=== PATIENT | male | born 1955 | race Caucasian/White ===

== ENCOUNTER 2016-08-05 11:14 | Emergency (ER) | payer OTHER, MEDICARE ==
[~2016-08-05] VITALS: Ht 175.3 cm; Wt 104.3 kg
[~2016-08-05 11:14] MED LIST: ASPIRIN CHILDRE81 MG PO; ATORVASTATIN CA10 MG PO; FLEXERIL10 MG PO; HYDROCODONE/APA1 TA1 PO; METFORMIN HYD1000 MG PO; PRINIVIL 5MG5 MG PO; PROPRANOLOL HYD20 MG PO; QUETIAPINE FUM100 MG PO; RISPERIDONE1 MG PO; RISPERIDONE4 MG PO
--- NOTE | 2016-08-05 12:39 | RADIOLOGY REPORT ---
EXAMINATION: XR CHEST CLINICAL INFORMATION: Shortness of breath COMPARISON: 08/01/2012 TECHNIQUE: 2 views of the chest were obtained. FINDINGS: Lungs are well expanded and clear. No pulmonary consolidation or pleural effusion. Cardiac silhouette is normal in size. The mediastinal and hilar contours are normal. There is skeletal hyperostosis with evidence of flowing anterior and lateral ligament ossification of the thoracic spine. IMPRESSION: No acute cardiopulmonary findings.
--- NOTE | 2016-08-05 13:33 | ED DYSPNEA/ASTHMA COMPLAINT ---
History of Present Illness General Chief Complaint: Dyspnea (COPD, CHF, Other) Stated Complaint: SOB; 98% AT [employer] Source: patient, old records Exam Limitations: no limitations Vital Signs & Intake/Output Vital Signs & Intake/Output Vital Signs Date Time Temp Pulse Resp B/P Pulse O2 O2 Flow FiO2 Ox Delivery Rate 08/05 1429 99.0 100 18 144/88 96 Room Air 08/05 1312 97 08/05 1143 97.7 94 20 137/84 98 Room Air Allergies Coded Allergies: MDX - Ampicillin (UNKNOWN 08/19/14) Reconcile Medications Aspirin (Children's Aspirin) 81 MG TAB.CHEW 1 TAB PO DAILY HEART HEALTH ( Reported) Atorvastatin Calcium (Lipitor) 10 MG TABLET 1 TAB PO DAILY CHOLESTEROL ( Reported) Lisinopril (Prinivil) 5 MG TABLET 1 TAB PO DAILY HEART (Reported) METFORMIN HCL (Metformin Hydrochloride) 1,000 MG TABLET 1 TAB PO BID DIABETES (Reported) Quetiapine Fumarate 100 MG TAB 1 TAB PO AT BEDTIME SLEEP (Reported) Risperidone 1 MG TABLET 1 TAB PO QPM MENTAL HEALTH (Reported) Risperidone 4 MG TABLET 1 TAB PO BID MENTAL HEALTH (Reported) Triage Note: PT TO ED C/O SOB AFTER SHOVELING THIS AM. STATES SAME HAPPENED A FEW YEARS AGO AND NOTHING WAS FOUND. RA SATS 98%, NO SOB OR DIFF BREATHING NOTED. DENIES C/P. Triage Nurses Notes Reviewed? yes HPI: Patient is a 61-year-old male with past history of diabetes and schizophrenia presents complaining of dyspnea. Patient reports he was shoveling snow for approximately 20 minutes at 9 AM this morning when he had the onset of dyspnea. Patient felt fatigued while shoveling, then dyspnea occurred when he came inside from shoveling. The symptoms are currently mild, more moderate this morning. Patient reports no change since onset with walking. Patient felt a heart racing sensation while he was in the waiting room in the emergency department. Patient denies chest pain, lower extremity pain, lower extremity swelling, cough, fevers , chills. Patient had a similar episode 4 years ago with shortness of breath when shoveling snow. Patient was brought in for observation at that time. Patient reports he had a stress test at that time and sees Dr. Almendarez for cardiology. (SARAVANAN GOMES,JARRED) Past History Travel History Traveled to [place] past 21 day No Medical History Any Pertinent Medical History? 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 No (JARRED DIAZ) Review of Systems Review of Systems Constitutional: Reports: malaise (while shoveling snow this AM). Denies: chills, fever. EENTM: Reports: no symptoms. Respiratory: Reports: short of breath. Denies: cough. Cardiovascular: Denies: chest pain, peripheral edema. GI: Denies: abdominal pain, nausea, vomiting. Genitourinary: Reports: no symptoms. Musculoskeletal: Reports: no symptoms. Skin: Reports: no symptoms. Neurological/Psychological: Reports: no symptoms. Hematologic/Endocrine: Reports: no symptoms. Immunologic/Allergic: Reports: no symptoms. (JARRED DIAZ) Physical Exam Physical Exam General Appearance: well developed/nourished, alert, awake Head: atraumatic, normal appearance Eyes: Bilateral: normal appearance, PERRL, EOMI. Ears, Nose, Throat: normal pharynx, normal ENT inspection, hearing grossly normal Neck: normal inspection, supple, full range of motion Respiratory: normal breath sounds, chest non-tender, no respiratory distress, lungs clear Cardiovascular: regular rate/rhythm, no appreciable murmur Peripheral Pulses: 2+ radial (R) Gastrointestinal: soft, non-tender Extremities: normal inspection, normal capillary refill, normal range of motion, no edema, no calf tenderness Neurologic/Psych: awake, alert, oriented x 3, flat affect Skin: intact, normal color, warm/dry Lymphatic: no anterior cervical judy Core Measures ACS in differential dx? Yes ASA ordered for poss ACS? No-ACS ruled out Severe Sepsis Present: No Septic Shock Present: No (JARRED DIAZ) Progress Differential Diagnosis: asthma, AMI, bronchitis, CHF, COPD, pulmonary embolism, pneumonia, unstable angina Plan of Care: Orders Procedure Date/time Status Consistent Carbohydrate 2 08/05 L Active TROPONIN LEVEL 08/05 1326 Complete COMPREHENSIVE METABOLIC PANEL 08/05 1326 Complete CBC WITHOUT DIFFERENTIAL 08/05 1326 Complete EKG 08/05 1326 Active Laboratory Tests 08/05/16 1345: Anion Gap 11, Estimated GFR > 60, BUN/Creatinine Ratio 15.6, Glucose 167 H, Calcium 9.2, Total Bilirubin 0.6, AST 38, ALT 63, Alkaline Phosphatase 70, Troponin I 0.03, Total Protein 6.5, Albumin 4.1, Globulin 2.4, Albumin/Globulin Ratio 1.7, CBC w Diff NO MAN DIFF REQ, RBC 4.58 L, MCV 90.5, MCH 32.0 H, RDW 13.7, MPV 7.2 L, Gran % 69.2, Lymphocytes % 22.4, Monocytes % 7.1, Eosinophils % 1.0, Basophils % 0.3, Absolute Granulocytes 5.7, Absolute Lymphocytes 1.8, Absolute Monocytes 0.6, Absolute Eosinophils 0.1, Absolute Basophils 0, PUBS MCHC 35.[address] Wood 08/05/2016 2:47:40 PM: Discussed with Dr. Almendarez: Can discharge patient and have him call the office to be seen this week for further evaluation. (JARRED DIAZ) Diagnostic Imaging: Viewed by Me: Radiology Read. Discussed w/RAD: Radiology Read. CXR Impression: PATIENT: LEW HENRIQUEZ PRESENT AGE: 61 PATIENT ACCOUNT NO: [id number] : 53 LOCATION: [facility] ORDERING PHYSICIAN: ADA WOOD MD SERVICE DATE: 08/05/16 EXAM TYPE: RAD - XRY-CHEST XRAY , PA AND LATERAL EXAMINATION: XR CHEST CLINICAL INFORMATION: Shortness of breath COMPARISON: 08/01/2012 TECHNIQUE: 2 views of the chest were obtained. FINDINGS: Lungs are well expanded and clear. No pulmonary consolidation or pleural effusion. Cardiac silhouette is normal in size. The mediastinal and hilar contours are normal. There is skeletal hyperostosis with evidence of flowing anterior and lateral ligament ossification of the thoracic spine. IMPRESSION: No acute cardiopulmonary findings. DICTATED BY: BARBARA SANDERS MD DATE/TIME DICTATED:08/05/161233 PHARMACY SERVICES REPRESENTATIVE:SHERITA DATE/TIME TRANSCRIBED:1233 CONFIDENTIAL, DO NOT COPY WITHOUT APPROPRIATE AUTHORIZATION. < Electronically signed in Other Vendor System> SIGNED BY: BARBARA SANDERS MD 08/05/16 1239 Initial ED EKG: normal axis, normal intervals, normal p-waves, normal QRS complex, normal sinus rhythm, no ST T wave changes Prior EKG: unchanged (JARRED DIAZ) Departure Departure Time of Disposition: 1449 Disposition: HOME OR SELF CARE Condition: Stable Clinical Impression Primary Impression: Dyspnea Qualifiers: Dyspnea type: unspecified Qualified Code: R06.00 - Dyspnea, unspecified Referrals: ZOHRA GOTTLIEB APRN (PCP/Family) CLEMENTE ALMENDAREZ MD Additional Instructions: Follow up with Dr. Almendarez this week for further evaluation. Call this afternoon for appointment. Return to the emergency department if you develop chest pain, shortness of breath worsens, or any worsening of symptoms. Departure Forms: Customer Survey General Discharge Information (JARRED DIAZ) PA/HEALTH NURSE Co-Sign Statement Statement: ED Attending supervision documentation- [] I saw and evaluated the patient. I have also reviewed all the pertinent lab results and diagnostic results. I agree with the findings and the plan of care as documented in the PA's/HEALTH NURSE's documentation. [X] I have reviewed the ED Record and agree with the PA's/HEALTH NURSE's documentation. [] Additions or exceptions (if any) to the PAs/HEALTH NURSE's note and plan are summarized below: [] (BESS BRYSON,ADA) Critical Care Note Critical Care Note Critical Care Time: non-applicable (JARRED DIAZ)
[2016-08-05 14:05] LABS: ABSOLUTE BASOPHIL COUNT 0 /CUMM (0.0-0.2); ABSOLUTE EOSINOPHIL COUNT 0.1 /CUMM (0.0-0.7); ABSOLUTE GRANULOCYTE CT 5.7 /CUMM (1.4-6.5); ABSOLUTE LYMPH COUNT 1.8 /CUMM (1.2-3.4); ABSOLUTE MONOCYTE COUNT 0.6 /CUMM (0.10-0.60); BASOPHIL % 0.3 % (0.0-2.0); GRANULOCYTE % 69.2 % (42.2-75.2); HEMATOCRIT 41.5 % (42-52); MEAN CORPUSCULAR HGB CONC 35.3 G/DL (33.0-37.0); MEAN CORPUSCULAR VOLUME 90.5 FL (80.0-94.0); MEAN PLATELET VOLUME 7.2 FL (7.4-10.4); PLATELET COUNT 169 /CUMM (130-400); RBC DISTRIBUTION WIDTH 13.7 % (11.5-14.5); RED BLOOD CELL CT 4.58 /CUMM (4.70-6.10); WHITE BLOOD CELL COUNT 8.2 /CUMM (4.8-10.8)
[2016-08-05 14:29] VITALS: BP 144/88
== END 2016-08-05 14:53 ==
LOC: ERH 11:14
PROVIDERS: Physician Assistant
DX: R06.00 Dyspnea, unspecified (principal); E11.9 Type 2 diabetes mellitus without complications; Z79.84 Long term (current) use of oral hypoglycemic drugs
CPT/HCPCS: 93005; 93010

== ENCOUNTER 2017-06-26 12:34 | Inpatient (IN) | payer OTHER, MEDICARE ==
[~2017-06-26] VITALS: Ht 175.3 cm; Wt 101.3 kg
[~2017-06-26 12:34] MED LIST changes: -ASPIRIN CHILDRE81 MG PO; -ATORVASTATIN CA10 MG PO; +CHILDREN'S ASPI81 M1 PO; +LIPITOR10 M1 PO; +METFORMIN HCL500 M2 PO; -METFORMIN HYD1000 MG PO; +QUETIAPINE FUM100 M1 PO; -QUETIAPINE FUM100 MG PO; +RISPERDAL2 M1 PO; +RISPERDAL4 M1 PO; -RISPERIDONE1 MG PO; -RISPERIDONE4 MG PO
--- NOTE | 2017-06-26 12:39 | ED DYSPNEA/ASTHMA COMPLAINT ---
See Addendum History of Present Illness General Chief Complaint: Dyspnea (COPD, CHF, Other) Stated Complaint: SOB Source: patient, old records, EMS Exam Limitations: no limitations Vital Signs & Intake/Output Vital Signs & Intake/Output Vital Signs Date Time Temp Pulse Resp B/P B/P Pulse O2 O2 Flow FiO2 Mean Ox Delivery Rate 06/26 1840 98.3 74 17 138/73 97 Room Air 06/26 1625 98.0 84 18 138/70 95 Room Air 06/26 1410 87 18 118/68 95 Room Air 06/26 1239 Room Air Room Air 06/26 1238 98.3 90 20 146/66 98 Room Air Room Air Allergies Coded Allergies: ampicillin (UNKNOWN 06/26/17) Reconcile Medications Aspirin (Children's Aspirin) 81 MG TAB.CHEW 1 TAB PO DAILY HEART HEALTH ( Reported) Atorvastatin Calcium (Lipitor) 10 MG TABLET 1 TAB PO DAILY CHOLESTEROL ( Reported) Glimepiride 4 MG TABLET 1 TAB PO DAILY DIABETES (Reported) Metformin HCl 500 MG TABLET 4 TAB PO DAILY DIABETES (Reported) Quetiapine Fumarate 100 MG TABLET 1 TAB PO QPM SLEEP (Reported) Risperidone (Risperdal) 4 MG TABLET 1 TAB PO BID MENTAL HEALTH (Reported) Risperidone (Risperdal) 2 MG TABLET 1 TAB PO QPM MENTAL HEALTH (Reported) Triage Note: PT BIBA FROM HOME FOR C/C OF 1 EPISODE OF NAUSEA THAT STARTED AT 0930 THIS MORNING FOLLOWED BY AN EPISODE OF SOB. DENIES CHEST PAIN. NO ACUTE DISTRESS NOTED ON ARRIVAL. Triage Nurses Notes Reviewed? yes HPI: Approximately the clock this morning the patient began to feel nauseous. Patient then began to feel shortness of breath. At noon the nausea has gotten better however was still slightly present but the shortness of breath continued so he attempted to walk to the police station. Wall en route there he noticed a cut was passing certified him down. EMS was called and the patient was brought in for evaluation. His fingerstick was 225. Patient denies any chest pain or palpitations. Patient denies any orthopnea. Patient denies any dyspnea on exertion. (Beronica BRYSON,Charles Milton) Past History Travel History Traveled to [place] past 21 day No Medical History Any Pertinent Medical History? 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 No (Beronica BRYSON,Charles Milton) Review of Systems Review of Systems Constitutional: Reports: no symptoms. EENTM: Reports: no symptoms. Respiratory: Reports: see HPI, short of breath. Cardiovascular: Reports: no symptoms. GI: Reports: no symptoms. Genitourinary: Reports: no symptoms. Musculoskeletal: Reports: no symptoms. Skin: Reports: no symptoms. Neurological/Psychological: Reports: no symptoms. Hematologic/Endocrine: Reports: no symptoms. Immunologic/Allergic: Reports: no symptoms. All Other Systems: Reviewed and Negative (Beronica BRYSON,Charles Milton) Physical Exam Physical Exam General Appearance: well developed/nourished, alert, awake Head: atraumatic, normal appearance Eyes: Bilateral: PERRL, EOMI. Ears, Nose, Throat: normal pharynx, normal ENT inspection Neck: normal inspection, supple, full range of motion, NO JVD Respiratory: normal breath sounds, chest non-tender, no respiratory distress, lungs clear Cardiovascular: regular rate/rhythm, normal peripheral pulses Gastrointestinal: normal bowel sounds, soft, non-tender, no organomegaly Extremities: normal inspection, normal capillary refill, normal range of motion, no edema Neurologic/Psych: no motor/sensory deficits, awake, alert, oriented x 3, normal gait, normal mood/affect Skin: intact, normal color, warm/dry Lymphatic: no anterior cervical judy Core Measures ACS in differential dx? No CVA/TIA Diagnosis No Sepsis Present: No Sepsis Focused Exam Completed? No (Beronica BRYSON,Charles Milton) Progress Differential Diagnosis: AMI, bronchitis, CHF, COPD, pneumonia, pneumothorax Plan of Care: Orders Procedure Date/time Status Heart Healthy Diet 06/26 D Active Add-on Test (ER Only) 06/26 1729 Active URINE DRUGS OF ABUSE 06/26 1729 Complete URINALYSIS 06/26 1729 Complete ED CRISIS PSYCH CONSULT 06/26 1644 Active ETHANOL 06/26 1531 Complete TROPONIN LEVEL 06/26 1517 Complete EKG 06/26 1517 Active Telemetry/Older Worker Specialist 06/26 1236 Active TROPONIN LEVEL 06/26 123 Complete COMPREHENSIVE METABOLIC PANEL 06/26 1235 Complete CBC WITHOUT DIFFERENTIAL 06/26 1235 Complete EKG 06/26 123 Active Current Medications Sig/Doris Start time Last Medication Dose Stop Time Status Admin Aspirin 81 MG DAILY 06/27 999 UNVr (Aspirin) Glimepiride 1 MG DAILY 06/27 999 UNVr (Amaryl) Metformin HCl 2,000 MG DAILY 06/27 999 UNVr (Glucophage) Quetiapine Fumarate 100 MG QPM 06/26 2199 UNVr (Seroquel) Risperidone 2 MG QPM 06/26 2199 UNVr (risperiDONE) Risperidone 4 MG .[10A,8PM] 06/26 2014 UNVr (Risperidone) Laboratory Tests 06/26/17 1735: Urine Opiates Screen < 100.00, Methadone Screen < 40, Barbiturate Screen < 60, Ur Phencyclidine Scrn < 6.00, Amphetamines Screen < 100, U Benzodiazepines Scrn < 85, Urine Cocaine Screen < 50, Urine Cannabis Screen < 5.00, Urine Color YEL, Urine Clarity CLEAR, Urine pH 6.0, Ur Specific [place] 1.025, Urine Protein NEG, Urine Ketones TRACE H, Urine Nitrite NEG, Urine Bilirubin NEG, Urine Urobilinogen 0.2, Ur Leukocyte Esterase NEG, Ur Microscopic SEDIMENT EXAMINED, Urine RBC RARE, Urine WBC RARE, Ur Epithelial Cells RARE, Urine Bacteria RARE H , Urine Mucus RARE, Urine Hemoglobin SMALL H, Urine Glucose 500 H 06/26/17 1531: Troponin I < 0.01, Serum Alcohol < 10.0 06/26/17 1243: Anion Gap 16, Estimated GFR > 60, BUN/Creatinine Ratio 15.6, Glucose 178 H, Calcium 9.2, Total Bilirubin 0.5, AST 36, ALT 66, Alkaline Phosphatase 65, Troponin I < 0.01, Total Protein 6.5, Albumin 4.1, Globulin 2.4, Albumin/ Globulin Ratio 1.7, CBC w Diff NO MAN DIFF REQ, RBC 4.63 L, MCV 91.0, MCH 31.4 H, RDW 14.3, MPV 7.4, Gran % 68.5, Lymphocytes % 22.6, Monocytes % 7.4, Eosinophils % 1.1, Basophils % 0.4, Absolute Granulocytes 4.9, Absolute Lymphocytes 1.6, Absolute Monocytes 0.5, Absolute Eosinophils 0.1, Absolute Basophils 0, PUBS MCHC 34.5 Diagnostic Imaging: Viewed by Me: Radiology Read. Discussed w/RAD: Radiology Read. CXR Impression: PATIENT: LEW HENRIQUEZ PRESENT AGE: 62 PATIENT ACCOUNT NO: [id number] : 53 LOCATION: [facility] ORDERING PHYSICIAN: Charles Loco MD SERVICE DATE: 06/26/17 EXAM TYPE: RAD - XRY- PORTABLE CHEST XRAY EXAMINATION: XR PORTABLE CHEST CLINICAL INFORMATION: Chest pain COMPARISON: 08/05/2016 TECHNIQUE: Portable frontal view of the chest was obtained. FINDINGS: The lungs are well expanded. There is no focal consolidation , edema, or effusion. No pneumothorax. The cardiomediastinal silhouette is within normal limits. No acute osseous abnormality. IMPRESSION: No acute pulmonary findings. DICTATED BY: Ashwin Brown MD DATE/TIME DICTATED:1311 HAND SURGEON:SHERITA DATE/TIME TRANSCRIBED:06/26/171311 CONFIDENTIAL, DO NOT COPY WITHOUT APPROPRIATE AUTHORIZATION. <Electronically signed in Other Vendor System> SIGNED BY: Stephanie BRYSON,Ashwin 06/26/171314 Pre-Hospital EKG: NSR, no ST T wave changes Initial ED EKG: NSR, no ST T wave changes Prior EKG: unchanged Repeat EKG: unchanged Rhythm Strip: normal sinus rhythm Hand-Off Endorsed To: Cory Ignacio MD Endorsed Time: 1904 Pending: consult (CRISIS) Comments: Patient states that he believes his symptoms are due to the fact that the devil is upset that he has been praying a lot more than normal. Patient does state that god does talk back to him. 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 The patient is currently resting comfortably. (Sandee BRYSON,Cory Hopson) Departure Departure Disposition: STILL A PATIENT Condition: Stable Clinical Impression Primary Impression: Dyspnea Qualifiers: Dyspnea type: unspecified Qualified Code: R06.00 - Dyspnea, unspecified Referrals: Erica Vee APRN (PCP/Family) Departure Forms: Customer Survey General Discharge Information (Charles Loco MD) Critical Care Note Critical Care Note Critical Care Time: non-applicable (Beronica BRYSON,Charles Milton)
[2017-06-26 12:49] LABS: ABSOLUTE BASOPHIL COUNT 0 /CUMM (0.0-0.2); ABSOLUTE EOSINOPHIL COUNT 0.1 /CUMM (0.0-0.7); ABSOLUTE GRANULOCYTE CT 4.9 /CUMM (1.4-6.5); ABSOLUTE LYMPH COUNT 1.6 /CUMM (1.2-3.4); ABSOLUTE MONOCYTE COUNT 0.5 /CUMM (0.10-0.60); BASOPHIL % 0.4 % (0.0-2.0); EOSINOPHIL % 1.1 % (0-5); GRANULOCYTE % 68.5 % (42.2-75.2); HEMATOCRIT 42.1 % (42-52); MEAN CORPUSCULAR HGB 31.4 PG (27.0-31.0); MEAN CORPUSCULAR HGB CONC 34.5 G/DL (33.0-37.0); MEAN PLATELET VOLUME 7.4 FL (7.4-10.4); PLATELET COUNT 189 /CUMM (130-400); RBC DISTRIBUTION WIDTH 14.3 % (11.5-14.5); RED BLOOD CELL CT 4.63 /CUMM (4.70-6.10); WHITE BLOOD CELL COUNT 7.1 /CUMM (4.8-10.8)
--- NOTE | 2017-06-26 13:15 | RADIOLOGY REPORT ---
EXAMINATION: XR PORTABLE CHEST CLINICAL INFORMATION: Chest pain COMPARISON: 08/05/2016 TECHNIQUE: Portable frontal view of the chest was obtained. FINDINGS: The lungs are well expanded. There is no focal consolidation, edema, or effusion. No pneumothorax. The cardiomediastinal silhouette is within normal limits. No acute osseous abnormality. IMPRESSION: No acute pulmonary findings.
[2017-06-26] MEDS ORDERED: GLIMEPIRIDE4 M1 PO (14:14)
--- NOTE | 2017-06-26 19:15 | ED PSYCH CRISIS CONSULTATION ---
See Addendum Crisis Consult Basic Assessment Date of Consult: 06/26/17 Responsible Person/Accompanied By: self Insurance Authorization: Insurance #1: Insurance name: MEDICARE A Phone number: Policy number: [id number] Group number: Authorization number: ED Provider: Patient's ED Provider: Beronica BRYSON,Charles Milton Primary Care Physician: Patient's PCP: Erica Vee APRN PCP's Current Psychiatrist: Elvia Arce APRN Chief Complaint: Dyspnea (COPD, CHF, Other) Patient's Quote: shortness of breath Present Illness: Pt is 62 yo single male with hx of schizoaffective d/o bipolar type with acute exacerbation and alcohol abuse. Pt's UTOX and BAL are negative. He notes he did drink 2 bottles of wine over [place]. Pt said he came in for complaint of shortness of breath and nausea that started this morning. Pt attempted to walk to the police station saw a copy coordinator and EMS was called to bring him in. He said he has hx of auditory hallucinations , voices that can be threatening and have been lately. Pt said he believes the devil is causing his symptoms currently and god is speaking to him. Per pt ," I have divine guidance by the [employer] and MOBITR[employer] spirit." He stated he prays from 5am- 8am and again after lunch. Per pt he has not shower in a couple days. He lives with a roommate and feels safe at home. He denies SI/HI and VH at this time. He is a pt of Care currently for medication management with Elvia Fitzgerald APRN and seen every 3 months. Pt reports meds are metformin, seroquel , risperdal and a couple other medical meds for diarrhea. 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 First hospitalization in 1978- [facility], [facility] and [facility] 2010. He has hx of GH OPS. Pt reported past hx of substance abuse as a teenager - marijuana, LSD, alcohol and speed. No hx suicide attempts. Pt notes passive SI " a long time ago." This medical technical writer left message with Care for collaterl info ie. pt's baseline functioning. Care is now closed. Per collateral with his brother Bert: He saw a 2-3 weeks ago and no concerning behaviors were reported. Pt is always clean when he visits and takes care of himself. Per Bert his brother used to hear voices but then got " big into amish and it stopped." Case consulted with Dr. Palmer and recommends h/o for observation and further collateral to obtained from [facility] for pt's baseline assessment and follow up appointment. Patient's Address: [address] [place] [address] Other Phone Number: Who Do You Live With? Other (see notes) Family/Informants Interviewed: Bert- brother [phone] Allergies - Coded Allergies: ampicillin (UNKNOWN 06/26/17) Current Medications - Scheduled Medications Aspirin (Children's Aspirin) 81 MG TAB.CHEW 1 TAB PO DAILY HEART HEALTH ( Reported) Entered as Reported by Taurus New on 07/08/141116 Last Taken: At an unknown date and time Atorvastatin Calcium (Lipitor) 10 MG TABLET 1 TAB PO DAILY CHOLESTEROL ( Reported) Entered as Reported by Taurus New on 07/08/14 111 Last Taken: At an unknown date and time Glimepiride 4 MG TABLET 1 TAB PO DAILY DIABETES #90 (Reported) Entered as Reported by Taurus New on 06/26/17 1414 Metformin HCl 500 MG TABLET 4 TAB PO DAILY DIABETES (Reported) Entered as Reported by Taurus New on 07/08/14 111 Quetiapine Fumarate 100 MG TABLET 1 TAB PO QPM SLEEP (Reported) Entered as Reported by Taurus New on 07/08/14 111 Last Taken: At an unknown date and time Risperidone (Risperdal) 4 MG TABLET 1 TAB PO BID MENTAL HEALTH (Reported) Entered as Reported by Taurus New on 07/08/14 111 Last Taken: At an unknown date and time Risperidone (Risperdal) 2 MG TABLET 1 TAB PO QPM MENTAL HEALTH (Reported) Entered as Reported by Taurus New on 08/19/14 0839 Laboratory Results: Laboratory Tests 06/26/17 1735: Urine Opiates Screen < 100.00, Methadone Screen < 40, Barbiturate Screen < 60, Ur Phencyclidine Scrn < 6.00, Amphetamines Screen < 100, U Benzodiazepines Scrn < 85, Urine Cocaine Screen < 50, Urine Cannabis Screen < 5.00, Urine Color YEL, Urine Clarity CLEAR, Urine pH 6.0, Ur Specific [place] 1.025, Urine Protein NEG, Urine Ketones TRACE H, Urine Nitrite NEG, Urine Bilirubin NEG, Urine Urobilinogen 0.2, Ur Leukocyte Esterase NEG, Ur Microscopic SEDIMENT EXAMINED, Urine RBC RARE, Urine WBC RARE, Ur Epithelial Cells RARE, Urine Bacteria RARE H , Urine Mucus RARE, Urine Hemoglobin SMALL H, Urine Glucose 500 H 06/26/17 1531: Troponin I < 0.01, Serum Alcohol < 10.0 06/26/17 1243: Anion Gap 16, Estimated GFR > 60, BUN/Creatinine Ratio 15.6, Glucose 178 H, Calcium 9.2, Total Bilirubin 0.5, AST 36, ALT 66, Alkaline Phosphatase 65, Troponin I < 0.01, Total Protein 6.5, Albumin 4.1, Globulin 2.4, Albumin/ Globulin Ratio 1.7, CBC w Diff NO MAN DIFF REQ, RBC 4.63 L, MCV 91.0, MCH 31.4 H, RDW 14.3, MPV 7.4, Gran % 68.5, Lymphocytes % 22.6, Monocytes % 7.4, Eosinophils % 1.1, Basophils % 0.4, Absolute Granulocytes 4.9, Absolute Lymphocytes 1.6, Absolute Monocytes 0.5, Absolute Eosinophils 0.1, Absolute Basophils 0, PUBS MCHC 34.5 Past History Past Medical History Neurological: NONE EENT: NONE Cardiovascular: hypertension, hyperlipidemia Respiratory: bronchitis, obstructive sleep apnea Gastrointestinal: NONE Hepatic: NONE Renal: NONE Musculoskeletal: NONE Psychiatric: schizophrenia Endocrine: diabetes Blood Disorders: NONE Cancer(s): NONE SMOOTH PLATER/Reproductive: NONE Past Surgical History Surgical History: CARPAL TUNNEL, CYST Psychosocial History Strengths/Capabilities: pt utilizes the amish for support Physical Limitations (Interventions): none Psychiatric Treatment History Psych Treatment Psychiatric Treatment Yes Inpatient Treatment Yes Outpatient Treatment Yes Location of Treatment [facility], [facility], [facility] Reason for Treatment schizoaffective d/o Dates of Treatment since 1978 Response to Treatment fair Diagnosis by History: schizoaffective d/o bipolar type Substance Use/Abuse History Drug Use/Abuse Substances Used/Abused Yes Substance Used/Abused Alcohol First Use teenager Last Used [place] How much used/taken 2 bottles of wine How often unknown For how long unknown Route of use oral Substance Abuse Treatment Substance Abuse Treatment Past Substance Abuse [place] No Inpatient Treatment No Outpatient Treatment No Current Mental Status Mental Status Orientation: Person, Place, Situation Affect: Anxious Speech: WNL Neuro-vegetative: Anhedonia Appearance Appearance- Dress/Hygiene: Pt is dressed [facility] gown , hygiene is fair Behaviors Thought Process: Irrational Thought Content: Auditory Hallucinations, Pentecostal Memory: WNL Insight: Fair SI/HI Risk Assessment Past Suicidal Ideation/Attempts Yes Current Suicidal Ideation/Att No Past Homicidal Ideation/Att: No Current Homicidal Ideation/Attempts No Degree of Intent: None Gravely Disabled: Inability, Poor Impulse Control Risk Factors: chronic/serious med cond., high anxiety/distress, SA/MH hospitalized, substance abuse, isolate/no social support, male, limited support Lethality Ratin (mild) PTSD Checklist PTSD Done? pt unable to participate ED Management Sitter: Yes Restraints: No DSM5/PS Stressors/Medical Prob Diagnosis' (DSM 5, Stressors, Medical): F25.9 schizoaffective disorder, bipolar type F10.20 alcohol use d/o moderate medical: type 2 diabetes psychosocial: lack of primary supports, chronic mentall illness Current GAF: 35 Departure Disposition Psych Medical Clearance Date: 06/26/17 Medically Cleared at: 1830 Time Started: 1829 Time Ended: 1924 Psychiatrist Consulted: Gabriela Palmer MD Date Disposition Established: 06/26/17 Time Disposition Established: 1924 Plan for Disposition - Modality: H/O Rationale for Disposition: Pt reports the devil is causing his symptoms right now, that god is talking to him, and has divine guidance by everett olvera. He denies SI/HI and VH and feel safe. Pt's only concern was his shortness of breath. Case consulted with Dr. Palmer and recommends pt be H/O for further assessment in the morning and collateral information to be obtained from Care . Referrals Erica Vee APRN (PCP/Family)
--- NOTE | 2017-06-27 12:05 | IP CRISIS DIAG ASSESS PSYCH ---
See Addendum Diagnostic Assessment Basic Assessment Insurance Authorization: Insurance #1: Insurance name: MEDICARE A Phone number: Policy number: [id number] Group number: Authorization number: Primary Care Physician: Patient's PCP: Erica Vee APRN PCP's Patient's Quote: shortness of breath Present Illness: Sw met with the patient for the AM reassessment. The patient reports that he is doing better then yesterday. He states that yesterday, he had shortness of breath and felt that it was the devil, who was giving him shortness of breath. He states that he is no longer feeling the shortness of breath. He states that he is Schizophrenic and has been for many years, with subsequent hospitalizations. He is a current patient at [facility] and sees therapist Laura Wen and VANCE Fitzgerald. He states that he always hears voices and that they are constantly at a low level. He feels that they are at a low level today. He states that he can always hear the devil, however he does not usually bother him, like he did yesterday. He denies and visual hallucinations at this time. He denies any suicidal or homicidal ideations. He states that he is Religion and attends evangelical on Sundays and prays the Rosary daily. He states that he is still getting divine guidance, from the [facility]. He does not think that he needs to be hospitalized and would like to shower, shave and go home. He did state that if Dr. Ag would like him to come into the hospital that he would be willing to sign in. MYRIAM spoke with Isabel from [facility] and will await a call back, with collateral. The following was taken from the consultation completed on 06/26/2017 by INDIRA Villanueva "Pt is 62 yo single male with hx of schizoaffective d/o bipolar type with acute exacerbation and alcohol abuse. Pt's UTOX and BAL are negative. He notes he did drink 2 bottles of wine over [place]. Pt said he came in for complaint of shortness of breath and nausea that started this morning. Pt attempted to walk to the police station saw a scleroscope tester and EMS was called to bring him in. He said he has hx of auditory hallucinations , voices that can be threatening and have been lately. Pt said he believes the devil is causing his symptoms currently and god is speaking to him. Per pt ," I have divine guidance by the [place] and holy spirit." He stated he prays from 5am- 8am and again after lunch. Per pt he has not shower in a couple days. He lives with a roommate and feels safe at home. He denies SI/HI and VH at this time. He is a pt of [facility] currently for medication management with Elvia Fitzgerald APRN and seen every 3 months. Pt reports meds are metformin, seroquel , risperdal and a couple other medical meds for diarrhea. 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 First hospitalization in 1978- [facility], [facility] and [facility] 2010. He has hx of OPS. Pt reported past hx of substance abuse as a teenager - marijuana, LSD, alcohol and speed. No hx suicide attempts. Pt notes passive SI " a long time ago."" Patient's Address: [address] [place] [address] Other Phone Number: Who Do You Live With? Other (see notes) (Roommate) Feel Safe Where You Live? Yes If No, Please Elaborate: N/A Marital Status: single Do You Have Children? No Primary Language? Bolivian Family/Informants Interviewed: Bert- brother [phone] [facility]- Isabel- [phone] Allergies - Coded Allergies: ampicillin (UNKNOWN 06/26/17) Current Medications - Scheduled Medications Aspirin (Children's Aspirin) 81 MG TAB.CHEW 1 TAB PO DAILY HEART HEALTH ( Reported) Entered as Reported by Taurus New on 07/08/14 1117 Last Taken: At an unknown date and time Atorvastatin Calcium (Lipitor) 10 MG TABLET 1 TAB PO DAILY CHOLESTEROL ( Reported) Entered as Reported by Taurus New on 07/08/14 111 Last Taken: At an unknown date and time Glimepiride 4 MG TABLET 1 TAB PO DAILY DIABETES #90 (Reported) Entered as Reported by Taurus New on 06/26/17 1414 Metformin HCl 500 MG TABLET 4 TAB PO DAILY DIABETES (Reported) Entered as Reported by Taurus New on 07/08/14 1115 Quetiapine Fumarate 100 MG TABLET 1 TAB PO QPM SLEEP (Reported) Entered as Reported by Taurus New on 07/08/14 111 Last Taken: At an unknown date and time Risperidone (Risperdal) 4 MG TABLET 1 TAB PO BID MENTAL HEALTH (Reported) Entered as Reported by Taurus New on 07/08/14 111 Last Taken: At an unknown date and time Risperidone (Risperdal) 2 MG TABLET 1 TAB PO QPM MENTAL HEALTH (Reported) Entered as Reported by Taurus New on 08/19/14 0839 Consequences of Psych Med Use: The patient appears to have some involuntary motor movements. Per Care he does have a history of involntary motor movements in his legs and at times with his mouth. Comment: N/A Lab Results: Laboratory Tests 06/26/17 1735: Urine Opiates Screen < 100.00, Methadone Screen < 40, Barbiturate Screen < 60, Ur Phencyclidine Scrn < 6.00, Amphetamines Screen < 100, U Benzodiazepines Scrn < 85, Urine Cocaine Screen < 50, Urine Cannabis Screen < 5.00, Urine Color YEL, Urine Clarity CLEAR, Urine pH 6.0, Ur Specific [place] 1.025, Urine Protein NEG, Urine Ketones TRACE H, Urine Nitrite NEG, Urine Bilirubin NEG, Urine Urobilinogen 0.2, Ur Leukocyte Esterase NEG, Ur Microscopic SEDIMENT EXAMINED, Urine RBC RARE, Urine WBC RARE, Ur Epithelial Cells RARE, Urine Bacteria RARE H , Urine Mucus RARE, Urine Hemoglobin SMALL H, Urine Glucose 500 H 06/26/17 1531: Troponin I < 0.01, Serum Alcohol < 10.0 06/26/17 1243: Anion Gap 16, Estimated GFR > 60, BUN/Creatinine Ratio 15.6, Glucose 178 H, Calcium 9.2, Total Bilirubin 0.5, AST 36, ALT 66, Alkaline Phosphatase 65, Troponin I < 0.01, Total Protein 6.5, Albumin 4.1, Globulin 2.4, Albumin/ Globulin Ratio 1.7, CBC w Diff NO MAN DIFF REQ, RBC 4.63 L, MCV 91.0, MCH 31.4 H, RDW 14.3, MPV 7.4, Gran % 68.5, Lymphocytes % 22.6, Monocytes % 7.4, Eosinophils % 1.1, Basophils % 0.4, Absolute Granulocytes 4.9, Absolute Lymphocytes 1.6, Absolute Monocytes 0.5, Absolute Eosinophils 0.1, Absolute Basophils 0, PUBS MCHC 34.5 Toxicology Screen Completed? Yes Results: negative Symptoms of Use: N/A Past History Past Medical History Medical History: None/Denies, Cholesterol, Diabetes, Hypertension, SCHIZOAFFECTIVE DISORDER Past Surgical History Surgical History CARPAL TUNNEL Abuse/Trauma History Trauma History/Current Trauma: Unknown Abuse/Trauma Treatment: N/A Legal History Current Legal Status: none (Pt. denies) Have you ever been arrested? 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 Physical Limitations (Interventions): None noted Psychiatric Treatment History Psych Treatment Psychiatric Treatment Yes Inpatient Treatment Yes Outpatient Treatment Yes Location of Treatment [facility], [facility] Reason for Treatment schizoaffective d/o Dates of Treatment since 1978 Response to Treatment fair Diagnosis by History: Schizoaffective d/o bipolar type Risk Factors: chronic/serious med cond., high anxiety/distress, SA/MH hospitalized, substance abuse, isolate/no social support, male, limited support Substance Use/Abuse History Drug Use/Abuse minimum 12mo Hx Substances Used/Abused Yes Substance Used/Abused Alcohol First Use teenager Last Used [place] How much used/taken 2 bottles of wine How often unknown For how long unknown Route of use oral Substance Abuse Treatment Substance Abuse Treatment Past Substance Abuse [place] No Inpatient Treatment No Outpatient Treatment No Location of Treatment N/A Reason for Treatment N/A Dates of Treatment N/A Response to Treatment N/A Comments: N/A Sexual History Sexual Concerns: None noted Education History Highest Level of Education: high school/GED, "[employer]" Preferred Learning Style: Unknown Current Mental Status Mental Status Orientation: Person, Place, Situation Affect: Anxious Speech: WNL Neuro-vegetative: Anhedonia Appearance Appearance- Dress/Hygiene: Pt is dressed in blue hospital gown, neat clean and well kempt. Behaviors Thought Process: Irrational Thought Content: Auditory Hallucinations, Buddhism Memory: WNL Insight: Fair SI/HI Risk Assessment - Minimum 6mo History- Past Suicidal Ideation/Attempts Yes Current Suicidal Ideation/Att No Past Homicidal Ideation/Att: No Current Homicidal Ideation/Attempts No Degree of Intent: None Gravely Disabled: Inability, Poor Impulse Control Risk Factors: chronic/serious med cond., high anxiety/distress, SA/MH hospitalized, substance abuse, isolate/no social support, male, limited support Lethality Ratin (mild) Needs/Init TX Plan/Goals: Admit to inpatient for safety and symptom stability. Attend group, individual and family sessions. Work with the provider on medication management. Work with the oncology social work on transition back to care in the community. AUDIT-C Questionnaire: AUDIT-C Questionnaire: Response Value ETOH use in the past year Monthly or less 1 # drinks typical/day 3 or 4 1 6 or > drinks per occasion Never 0 Total 2 DSM5/PS Stressors/Medical Prob Diagnosis' (DSM 5, Stressors, Medical): F25.9 schizoaffective disorder, bipolar type F10.20 alcohol use d/o moderate Medical: type 2 diabetes, pt. states that he has an enlarged prostate. Stressors: lack of primary supports, chronic mentall illness Current GAF: 29 Comments: N/A
[2017-06-27 15:30] VITALS: BP 127/74
[2017-06-27 17:07] VITALS: BP 140/69
[2017-06-27 19:42] VITALS: BP 138/64
[2017-06-27 19:50] VITALS: BP 138/64
--- NOTE | 2017-06-27 20:25 | History & Physical ---
General Information and HPI MD Statement: I have seen and personally examined LEW HENRIQUEZ and documented this H&P. The patient is a 62 year old M who presented with a patient stated chief complaint of [ medical evaluation]. Source of Information: patient Exam Limitations: no limitations History of Present Illness: Patient came to ER for acute worsening of shortness of breath. Yesterday morning it started around 9 AM when he was watching television and he noticed trouble breathing, could not catch his breath, he was getting restless and seemed to ER through EMS. He was evaluated in ER for his dyspnea with chest x- ray, EKG, labs, vitals everything within normal range. Later on patient said that "it is all devil's work". He said he was hallucinating but now currently he is not hearing voices or seeing things. His shortness of breath, chest Discomfort and everything else and is better. He gets shortness of breath only with extreme exertion, denies chest pain, chest tightness, palpitations. He gets diarrhea every day since many years and takes Imodium for symptomatic relief, he is not sure the cause of diarrhea. He also had symptoms related to BPH , was prescribed Flomax for 1 month now symptoms are much better and he is currently not taking any medications. Patient is compliant with all his medications, working on cutting down the sugar intake and his A1c control is much better. Otherwise complete ROS unremarkable. Allergies/Medications Allergies: Coded Allergies: ampicillin (UNKNOWN 06/26/17) Home Med list Aspirin (Children's Aspirin) 81 MG TAB.CHEW 1 TAB PO QPM HEART HEALTH ( Reported) Atorvastatin Calcium (Lipitor) 10 MG TABLET 1 TAB PO QPM CHOLESTEROL ( Reported) Glimepiride 4 MG TABLET 1 TAB PO Q PM DIABETES (Reported) Metformin HCl (Metformin HCl ER) 500 MG TAB.ER.24 2 TAB PO BID DIABETES ( Reported) Quetiapine Fumarate 100 MG TABLET 1 TAB PO QPM SLEEP (Reported) Risperidone (Risperdal) 4 MG TABLET 1 TAB PO BID MENTAL HEALTH (Reported) Risperidone (Risperdal) 2 MG TABLET 1 TAB PO QPM MENTAL HEALTH (Reported) Compliance With Home Meds: GOOD Past History Travel History Traveled to [place] past 21 day No Medical History Neurological: EPSE/TD EENT: NONE Cardiovascular: hyperlipidemia Respiratory: obstructive sleep apnea Gastrointestinal: CHRONIC LOOSE STOOL Hepatic: NONE Renal: NONE Musculoskeletal: NONE Psychiatric: schizo affective disorder, schizophrenia Endocrine: diabetes Blood Disorders: NONE Cancer(s): NONE 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 Home Services at Home: None Primary Language: Khmer Smoking Status: Former Smoker ETOH Use: occasional use Illicit Drug Use: denies illicit drug use Functional Ability ADLs Independent: dressing, eating, toileting, bathing. Ambulation: independent IADLs Independent: shopping, housework, finances, food prep, telephone, transportation , medication admin. Employment History Employment Retired Review of Systems Review of Systems Constitutional: Reports: no symptoms. EENTM: Reports: no symptoms. Cardiovascular: Reports: no symptoms. Respiratory: Reports: no symptoms. GI: Reports: diarrhea. Genitourinary: Reports: no symptoms. Musculoskeletal: Reports: no symptoms. Skin: Reports: no symptoms. Neurological/Psychological: Reports: no symptoms. Hematologic/Endocrine: Reports: no symptoms. Exam & Diagnostic Data Last 24 Hrs of Vital Signs/I&O Vital Signs Date Time Temp Pulse Resp B/P B/P Pulse O2 O2 Flow FiO2 Mean Ox Delivery Rate 06/27 1950 98.9 71 138/64 06/27 1942 98.9 71 138/64 06/27 1707 98.8 75 140/69 06/27 1707 98.8 75 140/69 06/27 1530 96.9 74 18 127/74 06/27 1508 96.9 74 18 127/74 97 06/27 1139 97 06/27 1138 98.8 88 16 118/66 97 Room Air 06/27 0826 98.5 82 18 111/62 96 06/27 0611 98.1 68 18 139/64 97 Room Air Physical Exam General Appearance Alert, Oriented X3, Cooperative, No Acute Distress Skin No Rashes, No Breakdown HEENT Atraumatic, PERRLA, EOMI Neck Supple, No JVD, No thryomegaly Lymphatic Cervical nl Cardiovascular Regular Rate, Normal S1, Normal S2, No Murmurs Lungs Clear to Auscultation, Normal Air Movement Abdomen Normal Bowel Sounds, Soft, No Tenderness Neurological Exam Findings: Normal Gait, Normal Speech, Strength at 5/5 X4 Ext, Normal Tone, Sensation Intact, Cranial Nerves 3-12 NL, Reflexes 2+ Cranial Nerves II through XII: 3 to 12 intact Extremities No Clubbing, No Cyanosis, No Edema, Normal Pulses, No Tenderness/ Swelling Vascular Normal Pulses, Pulses Symmetrical Last 24 Hrs of Labs/Arian: Laboratory Tests 06/26 06/26 1735 1531 Chemistry Troponin I (<0.11 ng/ml) < 0.01 Toxicology Urine Opiates Screen (>2000 NG/ML) < 100.00 Methadone Screen (>300 NG/ML) < 40 Barbiturate Screen (>200 NG/ML) < 60 Ur Phencyclidine Scrn (>25 NG/ML) < 6.00 Amphetamines Screen (>1000 NG/ML) < 100 U Benzodiazepines Scrn (>200 NG/ML) < 85 Urine Cocaine Screen (>300 NG/ML) < 50 Urine Cannabis Screen (>50 NG/ML) < 5.00 Serum Alcohol (<10 MG/DL) < 10.0 Urines Urine Color (YEL,AMB,STR) YEL Urine Clarity (CLEAR) CLEAR Urine pH (5.0 - 8.0) 6.0 Ur Specific Bradley (1.001 - 1.035) 1.025 Urine Protein (NEG,<30 MG/DL) NEG Urine Ketones (NEG) TRACE H Urine Nitrite (NEG) NEG Urine Bilirubin (NEG) NEG Urine Urobilinogen (0.1 - 1.0 EU/dl) 0.2 Ur Leukocyte Esterase (NEG) NEG Ur Microscopic SEDIMENT EXAMINED Urine RBC (0 - 5 /HPF) RARE Urine WBC (0 - 2 /HPF) RARE Ur Epithelial Cells (NONE,FEW) RARE Urine Bacteria (NEG/NONE) RARE H Urine Mucus (FEW,NONE) RARE Urine Hemoglobin (NEG) SMALL H Urine Glucose (N MG/DL) 500 H 06/26 1243 Chemistry Sodium (137 - 145 mmol/L) 138 Potassium (3.5 - 5.1 mmol/L) 4.2 Chloride (98 - 107 mmol/L) 103 Carbon Dioxide (22 - 30 mmol/L) 19 L Anion Gap (5 - 16) 16 BUN (9 - 20 mg/dL) 14 Creatinine (0.7 - 1.2 mg/dL) 0.9 Estimated GFR (>60 ml/min) > 60 BUN/Creatinine Ratio (7 - 25 %) 15.6 Glucose (65 - 99 mg/dL) 178 H Hemoglobin A1c (4.2 - 5.8 %) 7.6 H Calcium (8.4 - 10.2 mg/dL) 9.2 Total Bilirubin (0.2 - 1.3 mg/dL) 0.5 AST (17 - 59 U/L) 36 ALT (21 - 72 U/L) 66 Alkaline Phosphatase (< 127 U/L) 65 Troponin I (<0.11 ng/ml) < 0.01 Total Protein (6.3 - 8.2 g/dL) 6.5 Albumin (3.5 - 5.0 g/dL) 4.1 Globulin (1.9 - 4.2 gm/dL) 2.4 Albumin/Globulin Ratio (1.1 - 2.2 %) 1.7 Triglycerides (<150 mg/dL) 210 H Cholesterol (< 200 MG/DL) 114 LDL Cholesterol, Calc (65 - 129 mg/dL) 49 L HDL Cholesterol (40 - 60 mg/dL) 23 L Cholesterol/HDL Ratio (0.00 - 4.88 %) 5 H TSH &T3 &Free T4 Intrp (0.27 - 4.20 uIU/mL) 1.490 Hematology CBC w Diff NO MAN DIFF REQ WBC (4.8 - 10.8 /CUMM) 7.1 RBC (4.70 - 6.10 /CUMM) 4.63 L Hgb (14.0 - 18.0 G/DL) 14.5 Hct (42 - 52 %) 42.1 MCV (80.0 - 94.0 FL) 91.0 MCH (27.0 - 31.0 PG) 31.4 H RDW (11.5 - 14.5 %) 14.3 Plt Count (130 - 400 /CUMM) 189 MPV (7.4 - 10.4 FL) 7.4 Gran % (42.2 - 75.2 %) 68.5 Lymphocytes % (20.5 - 51.1 %) 22.6 Monocytes % (1.7 - 9.3 %) 7.4 Eosinophils % (0 - 5 %) 1.1 Basophils % (0.0 - 2.0 %) 0.4 Absolute Granulocytes (1.4 - 6.5 /CUMM) 4.9 Absolute Lymphocytes (1.2 - 3.4 /CUMM) 1.6 Absolute Monocytes (0.10 - 0.60 /CUMM) 0.5 Absolute Eosinophils (0.0 - 0.7 /CUMM) 0.1 Absolute Basophils (0.0 - 0.2 /CUMM) 0 PUBS MCHC (33.0 - 37.0 G/DL) 34.5 Diagnostic Data EKG Results Reviewed CXR Results No acute abnormality. Assessment/Plan Assessment: #1 dyspnea at rest: Complete examination, vitals, ECG, chest x-ray unremarkable, symptoms resolved. #2 schizophrenia: Agree with psychiatry plan #3 chronic diarrhea: Continue when necessary Imodium #4 DM: Continue home doses of metformin and glimepiride As Ranked By This Provider Problem List: 1. Dyspnea Qualifiers Dyspnea type: unspecified Qualified Code: R06.00 - Dyspnea, unspecified Miscellaneous Miscellaneous Documentation Attending Case Discussed With: Sunni BRYSON,Raji Primary Care Physician: Erica Vee APRN Patient sees these Specialists Urologist Level of Patient Care: RANJEET Norton Attending MD Review Statement Attending Statement Attending MD Statement: I personally examined the patient and noted in H and P
--- NOTE | 2017-06-27 22:17 | Admission Certification ---
Admission Certification Certification Statement - As attending physician, I certify that at the time of - admission, based on clinical presentation, severity of - symptoms, need for further diagnostic testing and - therapeutic interventions, and risk of adverse outcomes - without in-hospital treatment, in my clinical assessment, - this patient requires an acute hospital stay for a minimum - of two nights or longer. I have also considered psychsocial - factors such as support system, advanced age, financial - issues, cognitive issues, and failed out-patient treatments, - past re-admission history, safety of patient, and lack of - compliance as applicable. Specific rationale supporting this admission is: Schizophrenia
[2017-06-28] VITALS (7 sets, daily range): BP systolic 109–146; BP diastolic 54–67
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
--- NOTE | 2017-06-28 13:10 | CPS PROVIDER INIT ASMT PSYCH ---
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 in [place] with longstanding history of schizoaffective d/o bipolar type Chief Complaint: "Well I came in for shortness of breath during the snowstorm, which I think ended up just being anxiety" Reaction to Hospitalization: agrees History of Present Illness Onset of Illness: Per notes, h/o schizoaffective disorder bipolar type since age 22 with previous hospitalizations at [facility], [facility], and [facility] Circumstances Leading to Admission: In anticipation of a large snowstorm two days ago, became acutely anxious about how much snow there would be, whether his car would start. Says this happened to him a few years ago prior to another large snowstorm. Reports feeling acutely short of breath, tried to drive to hospital but ended up "flagging down a certified flex endoscope reprocessor" who brought him to . At , no evidence of physical cause of SOB, however espoused concerning delusions that SOB was caused by the devil and that God was speaking to him. He denied SI/HI at that time. Was held over for re-eval in ED, the following morning the patient felt he would be well served by hospitalization and he was subsequently admitted. Problem(s) Justifying Need for Admission: Psychotic and anxious symptoms leading to functional difficulties Past Psychiatric History Past Diagnosis(es)- if any: Per notes: Schizoaffective disorder bipolar subtype Past Precipitating Factors- if any: Reports having a previous similiar episode of SOB and acute anxiety in the context of a snowstorm in the past few years - Include inpatient and outpatient treatment Treatment History: Currently in outpatient treatment through [facility] with Koki Lovett. Patient reports good relationship with Koki and feels his medications have been helpful. Per notes, past psychiatric hospitalizations at [facility] and [facility] in distant past, and [facility] in 2010. History of Suicide Attempts or Gestures Denies history of suicide attempts Substance Abuse History: reports history of cannabis, LSD, alcohol, and amphetamine as a teenager. Currently reports "rarely drinking", says he did drink a bottle of wine over douglas. BAL on presentation was 0. Allergies: Coded Allergies: ampicillin (UNKNOWN 06/26/17) Home Med List: Risperdal 4 mg QAM + 6 mg QPM Seroquel 100 mg QPM Aspirin 81 mg Qday Lipitor 10 mg QPM Glimepiride 4 mg QPM Metformin 1000 mg BID - Include any medical condition(s) that may - impact the patient's recovery/remission Past History Medical History Neurological: EPSE/TD EENT: NONE Cardiovascular: hyperlipidemia Respiratory: obstructive sleep apnea Gastrointestinal: CHRONIC LOOSE STOOL Hepatic: NONE Renal: NONE Musculoskeletal: NONE Psychiatric: schizo affective disorder, schizophrenia Endocrine: diabetes Blood Disorders: NONE Cancer(s): NONE 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 Has no children. Has 2 brothers , 1 who lives in [place] and the other with whom he has no relationship. Education: Some HS Vocation/Occupation: Retired [employer] Legal: Denies Healthly Behaviors Screening Tobacco Screening Tobacco Use from ED Docu: Never used - If tobacco counseling indicated - the following topics are required. - #1 Recognizing dangerous situations. - #2 Coping Skills. - #3 Basic information about quitting. Status of Tobacco Cessation Counseling: Not Applicable Cessation Med Status Not Applicable Alcohol Screening - ETOH screen POS if BAL >=80 or Audit-C>= M4/F3 Audit-C Score from Diag Assess: 2 Blood Alcohol Level: Laboratory Tests 06/26 1531 Toxicology Serum Alcohol (<10 MG/DL) < 10.0 Alcohol Use Screening Results: Neg per Audit C &/or BAL - If ETOH counseling indicated - the following topics are required. - #1 Express concern about the patient's - drinking at unhealthy levels, include informing - of national norms for moderate drinking: - men <= 14 drinks/week, max 4 drinks/occasion - women <= 7 drinks/week, max 3 drinks/occasion - #2 Providing feedback, including linking alcohol to - negative physical effects (liver injury, hypertension) - negative emotional effects (relationship problems and - depression) - negative occupational consequences (reduced work - performance) - #3 Advising the patient to abstain from alcohol or - to drink below national norms for moderate drinking - (as listed above). Status of ETOH Use Counseling: N/A B/C NO ETOH Use Metabolic Screening - Screen if on a Neuroleptic Medication - Metabolic screening should include: - Blood Pressure, BMI, Glucose or Hgb A1c, & a - Lipid profile from within the past 365 days. Metabolic Screening () Patient on a neuroleptic(s) . Enter below results for Hemoglobin A1C, and lipid panel if obtained during the last 365 days. BMI: 32.000 Blood Pressure: 120/67 Laboratory Results From [facility] (If applicable): Lipid panel 06/26/2017: Cholesterol 114 LDL 49 HDL 23 Trigs 210 glucose 178 Exam and Plan Mental Status Examination Ambulation Status: stable Appearance: well-groomed Attitude towards examiner: cooperative and pleasant Psychomotor activity: +lower extremity resting tremor bilaterally R>L Behavior: wnl Quality of speech: monotonous, o/w wnl Affect: slightly constricted, non-labile, congruent Mood: "alright" Suicidal Ideation: denies Homicidal Ideation: denies Hallucinations: chronic auditory hallucinations Paranoid/Delusional Material: +delusions that the devil caused his SOB and other mandaen delusions Difficulties with thought organization: none evidenced Insight: good Judgment: good Orientation: to person, place, date Cognition: intact Memory Function: grossly intact Estimate of intellectual functioning: average Assets/Strengths Patient Identified Assets/Strengths: has good relationship with roommate and outpatient supervisor tumbling and rolling Impression/Plan Impression and Plan: 62 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 Given his continuous churn buttermaker mental illness, his mental state is likely quite stress-dependent, and as he notes has occurred in the past, is sensitive to decompensation in the context of stressors such as major weather events. He seems to have recompensated nicely on the unit so far with resumption of his outpatient meds. - Include all active medical diagnosis that require tx DSM 5 Diagnosis(es): Schizoaffective disorder bipolar type Tardive dyskinesia - Initial Tx Plan for Active Psych & Medical Conditions Treatment Plan: -Admit CPS -15 minute checks -Acquire collateral from [facility] -Resume outptient psychiatric meds: risperdal 4 mg QAM + 6 mg QPM seroquel 100 mg QPM -Resume outpatient non-psychotropics -SW to assist with disposition planning and resumption of outpatient treatment - Factors that would help patient function - in a less restrictive setting. Factors: -demonstration of functional ability in the context of chronic SMI
[2017-06-29 07:37] VITALS: BP 139/63
[2017-06-29 07:48] VITALS: BP 139/63
--- NOTE | 2017-06-29 11:05 | CP SOUTH PROGRESS NOTE PSYCH ---
Psych (Inpt) Progress Note Progress Note Include the following elements, when applicable: Involvement in the active treatment of the patient with behavioral observations of the patient and the patient's response to the treatment. Review of the ongoing treatment process in the context of the treatment plan. Indication of how multi-disciplinary staff members are carrying out the treatment plan. Plans for future interventions and recommendations for revision of the treatment plan. Liaison with other physicians/providers. Progress Note: Chart reviewed. Progress discussed with nursing staff. Interviewed patient this morning. Patient reports "boy, I'm glad that I was here over the past few days. It's supposed to be over 30 this week and I'm pretty sure my truck will start now." Reports feeling well, reports reduction in anxiety, denies any change in low level background auditory hallucinations which he has heard for many years. Denies any medication side effects. Looks forward to eventually returning home and notes that he plans to follow-up with his outpatient prescriber as soon as possible "as long as my truck starts ". He denies any SI or HI. Vital signs were reviewed and are within normal limits. There are no new laboratory results today. Mental status exam: Torsten is a well-groomed man of apparent stated age wearing hospital scrubs. He demonstrates tardive dyskinesia of the face and some resting tremor of the lower extremities bilaterally. He demonstrates no psychomotor agitation or retardation. His speech was generally within normal limits other than monotonous prosody. His mood was "much better", his affect was euthymic, non-labile, thought process was again somewhat perseverative about the weather, content notable for denial of SI or HI. He reports chronic low level auditory hallucinations of noncommand nature. His cognition was grossly intact. His insight and judgment were fair. Assessment and plan: 62-year-old man with chronic schizophrenia spectrum disorder presenting with worsening anxiety in the context of a winter blizzard. Seems to have recompensated after a few days in a structured environment. Would benefit from further collateral from outpatient provider and linking to outpatient provider soon after discharge. For now will continue present management.
[2017-06-29 12:05] VITALS: BP 130/66
[2017-06-29 15:42] VITALS: BP 135/68
[2017-06-29 20:26] VITALS: BP 11/71; BP 141/71
[2017-06-30 08:01] VITALS: BP 122/70
--- NOTE | 2017-06-30 11:43 | SOCIAL WORKER PROG NOTE PSYCH ---
See Addendum Social Work Progress Note Progress Note Torsten talked about having shortness of breath. Reported this was his main reason for coming to the hospital. Stating it "is caused by the devil." He said he was doing better yesterday, but woke up with some shortness of breath last night for about a half hour and has been experiencing it some today. He does acknowledge that it could also be caused by anxiety. He stated he was very anxious about the snow storm last week and the frigid tempatures. He said he dreaded the idea of being at home alone and not being able to go out. He does have a roommate, but this individual works and is out throughout the day it sounds like. He and the roommate have been together for 20 years. He stated his anxiety has decreased some since his admission here. He feels better about the temperatures for this week. He is in outpatient tx with [facility]. He sees Elvia Garcia APRN and Laura Wen is his therapist. He asked when he may discharge? I told him possibly tomorrow if he is doing well. He said he is hoping to resume his prayer activities. He said he usually prays for 3 hours a day at home. He attends [employer] on Sundays. He is worried that the devil may stop him from praying. I asked if the devil has done this to him before? He said "yes, years ago." I asked how he would know the devil was stopping him? He stated "I would get shortness of breath." He signed a release for his roommate Bert Holbrook [phone]. He also signed a release for [facility]. He doesn't want to have a family meeting, but states I can contact his roommate. I called [facility] and spoke with Isabel Eldridge. Torsten has an appt. with his therapist Laura Mederos on 07/02 at 10am, has group with Laura 07/03 at 10:30am, and will see Elvia Garcia APRN on 07/04 at 12:30pm. Called Torsten's roommate to see if he was available for a phone conference tomorrow? He stated he was not due to working. He didn't have any concerns about Torsten and just knew that he was coming to the hospital due to shortness of breath. He doesn't have a problem with him discharging home tomorrow if approved.
[2017-06-30 12:20] VITALS: BP 134/63
--- NOTE | 2017-06-30 13:34 | CP SOUTH PROGRESS NOTE PSYCH ---
Psych (Inpt) Progress Note Progress Note Include the following elements, when applicable: Involvement in the active treatment of the patient with behavioral observations of the patient and the patient's response to the treatment. Review of the ongoing treatment process in the context of the treatment plan. Indication of how multi-disciplinary staff members are carrying out the treatment plan. Plans for future interventions and recommendations for revision of the treatment plan. Liaison with other physicians/providers. Progress Note: Dr. Mejia' notes reviewed. Case and treatment plan discussed in team meeting. Staff reports that the patient is doing well. Had shortness of breath last night, possibly related to anxiety. We anticipate likely discharge tomorrow. Patient seen at 12:01 PM. He was in group prior to my meeting with him. He is an overweight white male dressed in sweatshirt and jeans. He has a grant face. He is noted to have some tardive dyskinesia at the mouth. He is calm, polite and cooperative. There is no psychomotor agitation or retardation. Speech is normal in volume, rate and tone. Affect is calm and blunted. States is here because he was anxious about the snowstorm the other day and about the cold weather that would follow it. He was anxious about whether or not his truck would start despite a new battery. He was anxious about having to shovel snow and also about shortness of breath. Reports he prayed for mercy that his anxiety would go away but it did not work. Reports that the Lord pointed him towards the hospital. States that the Devil caused his shortness of breath as a punishment; states that the Devil does not like what the patient is praying about. Reports that when he got to the hospital, most of the symptoms (dyspnea) went away within 1 hour. Reports he was fine until last night, when he woke for a half hour due to shortness of breath. Reports that the blessed Mary Irwin helped him out last night. Now has a little shortness of breath sometimes. Reports his spirits are good. We discussed the fact that he is on both Risperdal and Seroquel. He insists that he needs to remain on Seroquel or he will not be able to sleep. Reports mood is fine, stating that he is in a good mood. Rates sad mood about 3/10 and anxiety about 1/10. Denies feeling hopeless, helpless or guilty. Feels worthless sort of. Denies active and passive suicidal ideation. Denies homicidal ideation. Reports hearing voices a little bit, once in a while. Reports they never fully go away. With this started when he was 23 years old. Reports the voices do little they say things to make him mad or to humiliate him. Reports he has had good luck with Risperdal. Voices say "you start praying like you used to and you're going to be back in here again." Denies visual hallucinations. He has paranoia of the Devil. Denies magical power but reports he has the [place] Alida's direction and guidance. Oriented 3. 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 Reports he is on Social Security disability and food stamps. Reports sleep was good until last night. Appetite is pretty good. Energy is good. Reports tolerating medications well except for dry mouth. Case discussed with Koki Soler APRN. Because the patient is on 2 neuroleptics, I asked her to look into whether the patient had documented failures of 3 trials of monotherapy. Because the patient is hyper-sikhism, I asked her to look into whether the patient has had lithium in the past. IMPRESSION: Slow progress. Continue present treatment plan. Anticipate likely discharge tomorrow to home with follow-up at [facility] [place].
[2017-06-30 16:04] VITALS: BP 122/52
[2017-06-30 19:58] VITALS: BP 141/72
[2017-07-01 07:53] VITALS: BP 142/72
--- NOTE | 2017-07-01 10:24 | SOCIAL WORKER PROG NOTE PSYCH ---
Social Work Progress Note Progress Note Torsten reports feeling better today and ready to go home. No reports of shortness of breath today. Reviewed his appts. with [facility] set up for tomorrow, , and Friday. Shared that I spoke with his roommate and he is welcoming him home. His roommate is working today and won't be around. Torsten will need a livery ride home. I told him I will set up [place] transport. I attempted to schedule transport, but a ride could not be confirmed so he ended up paying for a cab himself through [facility].
[2017-07-01] MEDS ORDERED: SEROQUEL100 M1 PO (10:47)
[2017-07-01] MEDS ORDERED: RISPERDAL4 M1 PO (10:47)
[2017-07-01] MEDS ORDERED: RISPERDAL3 M1 PO (10:47)
[2017-07-01] MEDS ORDERED: ONE DAILY MULT1 EAC2 PO (10:48)
--- NOTE | 2017-07-01 10:56 | Patient Discharge Instructions ---
Psych Discharge Inst General Discharge Information Reason for Admission: "Well I came in for shortness of breath during the snowstorm, which I think ended up just being anxiety" Psy Discharge Primary Diag+ Schizoaffective d/o, bipolar type Psy Discharge Secondary Diag+ Anxiety d/o with dyspnea Tardive dyskinesia Diabetes mellitus Hyperlipidemia Chronic obs sleep apnea Chronic diarrhea Summary Tests/Major Procedures Lab ALT 66 U/L 06/26/17 1243 AST 36 U/L 06/26/17 1243 Carbon Dioxide 19 mmol/L L 06/26/17 1243 Cholesterol 114 MG/DL 06/26/17 1243 Cholesterol/HDL Ratio 5 % H 06/26/17 1243 Glucose 178 mg/dL H 06/26/17 1243 HDL Cholesterol 23 mg/dL L 06/26/17 1243 Hemoglobin A1c 7.6 % H 06/26/17 1243 LDL Cholesterol, Calc 49 mg/dL L 06/26/17 1243 TSH &T3 &Free T4 Intrp 1.490 uIU/mL 06/26/17 1243 Triglycerides 210 mg/dL H 06/26/17 1243 Troponin I < 0.01 ng/ml 06/26/17 1243 Troponin I < 0.01 ng/ml 06/26/17 1531 Hct 42.1 % 06/26/17 1243 Hgb 14.5 G/DL 06/26/17 1243 MCH 31.4 PG H 06/26/17 1243 Plt Count 189 /CUMM 06/26/17 1243 RBC 4.63 /CUMM L 06/26/17 1243 WBC 7.1 /CUMM 06/26/17 1243 Serum Alcohol < 10.0 MG/DL 06/26/17 1531 Ur Epithelial Cells RARE 06/26/17 1735 Urine Bacteria RARE H 06/26/17 1735 Urine Glucose 500 MG/DL H 06/26/17 1735 Urine Hemoglobin SMALL H 06/26/17 1735 Urine Ketones TRACE H 06/26/17 1735 Urine Mucus RARE 06/26/17 1735 Urine RBC RARE /HPF 06/26/17 1735 Urine WBC RARE /HPF 06/26/17 1735 ERVICE DATE: 06/26/17-123 EXAM TYPE: RAD - XRY-PORTABLE CHEST XRAY EXAMINATION: XR PORTABLE CHEST CLINICAL INFORMATION: Chest pain COMPARISON: 08/05/2016 TECHNIQUE: Portable frontal view of the chest was obtained. FINDINGS: The lungs are well expanded. There is no focal consolidation, edema, or effusion. No pneumothorax. The cardiomediastinal silhouette is within normal limits. No acute osseous abnormality. IMPRESSION: No acute pulmonary findings. EKG 06/26/17 showed sinus rhythm at a rate of 81, no significant change since previous tracing, normal EKG, QT 356, QTc 414. Studies Pending at DC: None. Patient Instructions Contact Information Your Psychiatrist on [facility] was Dawood Ag MD * If you are experiencing an emergency related to this hospitalization, please call [phone] to contact the treating psychiatrist or the psychiatrist-on- call. * To Request a copy of your medical records, please contact the Medical Records Department at [phone]. * To request results of studies pending at the time of discharge, please call [phone]. * Continue your Medications until directed to stop by your Healthcare provider. General Medication Information Please continue to take your new medications and your continued home medications , unless otherwise indicated on your discharge medication list, or unless directed by your MD or BREASTFEEDING PROGRAM COORDINATOR to stop them. Special Instructions Diet Diabetic Activity Normal Other Inst/Recommendations See Koki Graham APRN about tardive dyskinesia. See PCP about abnl labs. - Tobacco Use Treatment Offered Post DC Medications Offered: Not Applicable Post DC Tobacco Treatment Plan: Not Applicable - EtOH/Drug Use D/O Treatment Offered Post DC Medications Offered: NA-No EtOH/Drug Use D/O Post DC EtOH/SubAbuse TX Plan: NA-No EtOH/Drug Use D/O Metabolic Screening () Not Applicable, patient not on a neuroleptic. OR () Patient on a neuroleptic(s) . Enter below results for Hemoglobin A1C, and lipid panel if obtained during the last 365 days. BMI: 32.000 Blood Pressure: 142/72 Laboratory Results From [facility] (If applicable): Please see labs above. Advance Directives Does the Patient have Medical Advance Directives No/Refused further info Does Pt have Psychiatric Advance Directives? No/Refused further info Does Patient have a Designated Surrogate Decision Maker: No Information About Psychiatric Advance Directives Provided? Unable to Comprehend Discharge Plan Post Hospital Treatment Plan: Post Discharge Referrals Provider Referral Service Date: 07/02/17 Referred To: [[facility]] Notes: [facility] appt. with clinician Laura Mederos 07/02/17 10am [address] [facility] [place] [address] Provider Referral Service Date: 07/04/17 Referred To: [[facility]] [Elvia Garcia APRN] Notes: [facility] appt. with Elvia Garcia APRN 07/04/17 12:30pm [address] [place] [address]
--- NOTE | 2017-07-01 12:10 | SOCIAL WORKER PROG NOTE PSYCH ---
Social Work Progress Note Progress Note Confirm # thru [facility] #[id number] Pt may call for his own cab, as [facility] indicated it is a long wait/ i.e more than 3 hours. Khanh is a help desk supervisor at [employer] can be reached to [facility] with us anytime [phone].
--- NOTE | 2017-07-01 13:28 | SOCIAL WORKER PROG NOTE PSYCH ---
Social Work Progress Note Faxed Referral(s) Referred To: [facility] Transition of Care Documents sent: Health Summary Faxed to: Care Fax #: [phone] Faxed by: Mila Garcia Date faxed: 07/01/17 Time Faxed: [phone]
--- NOTE | 2017-07-01 16:18 | CP SOUTH PROGRESS NOTE PSYCH ---
Psych (Inpt) Progress Note Progress Note Include the following elements, when applicable: Involvement in the active treatment of the patient with behavioral observations of the patient and the patient's response to the treatment. Review of the ongoing treatment process in the context of the treatment plan. Indication of how multi-disciplinary staff members are carrying out the treatment plan. Plans for future interventions and recommendations for revision of the treatment plan. Liaison with other physicians/providers. Progress Note: Case and treatment plan discussed in team meeting. Staff reports that the patient is denying suicidal ideation. Talked a little about the Devil yesterday. Staff knows him and reports that the patient is at baseline. Patient seen at 10:56 AM with medical student. Patient is juggling his left leg. Reports feeling fine. Has no complaints. Affect is calm and blunted to euthymic. Reports he had no shortness of breath last night or so far this morning. There is no objective evidence of dyspnea. We discussed patient's tardive dyskinesia at the mouth and my recommendation that he follow-up with Koki Soler APRN about this. States he feels energized, pretty good. Mood is good. Rates sad mood 2/10 and anxiety 1/10. Denies feeling hopeless, helpless, worthless or guilty. Denies active and passive suicidal ideation. Denies homicidal ideation. Reports he has not had any voices so far today. Denies visual hallucinations. Reports some paranoia of "probably people associated with the Devil; don't like what I pray about." Denies magical bridges. Oriented pretty good. Tolerating medications well, without complaint. Feels ready and safe for discharge. IMPRESSION: Condition improved. Okay for discharge today to home with follow-up at [facility].
--- NOTE | 2017-07-01 16:56 | DISCHARGE SUMMARY REPORT-PSYCH ---
Visit Information Visit Dates/Diagnosis' Admission Date: 06/27/17 Discharge Date: 07/01/17 Reason for Admission: "Well I came in for shortness of breath during the snowstorm, which I think ended up just being anxiety" Psy Discharge Primary Diag: Schizoaffective d/o, bipolar type Psy Discharge Secondary Diag: Anxiety d/o with dyspnea Tardive dyskinesia Diabetes mellitus Hyperlipidemia Chronic obs sleep apnea Chronic diarrhea Hospital Course Significant Lab Findings: Lab ALT 66 U/L 06/26/17 1243 AST 36 U/L 06/26/17 1243 Carbon Dioxide 19 mmol/L L 06/26/17 1243 Cholesterol 114 MG/DL 06/26/17 1243 Cholesterol/HDL Ratio 5 % H 06/26/17 1243 Glucose 178 mg/dL H 06/26/17 1243 HDL Cholesterol 23 mg/dL L 06/26/17 1243 Hemoglobin A1c 7.6 % H 06/26/17 1243 LDL Cholesterol, Calc 49 mg/dL L 06/26/17 1243 TSH &T3 &Free T4 Intrp 1.490 uIU/mL 06/26/17 1243 Triglycerides 210 mg/dL H 06/26/17 1243 Troponin I < 0.01 ng/ml 06/26/17 1243 Troponin I < 0.01 ng/ml 06/26/17 1531 Hct 42.1 % 06/26/17 1243 Hgb 14.5 G/DL 06/26/17 1243 MCH 31.4 PG H 06/26/17 1243 Plt Count 189 /CUMM 06/26/17 1243 RBC 4.63 /CUMM L 06/26/17 1243 WBC 7.1 /CUMM 06/26/17 1243 Serum Alcohol < 10.0 MG/DL 06/26/17 1531 Ur Epithelial Cells RARE 06/26/17 1735 Urine Bacteria RARE H 06/26/17 1735 Urine Glucose 500 MG/DL H 06/26/17 1735 Urine Hemoglobin SMALL H 06/26/17 1735 Urine Ketones TRACE H 06/26/17 1735 Urine Mucus RARE 06/26/17 1735 Urine RBC RARE /HPF 06/26/17 1735 Urine WBC RARE /HPF 06/26/17 1735 ERVICE DATE: 06/26/17-1236 EXAM TYPE: RAD - XRY-PORTABLE CHEST XRAY EXAMINATION: XR PORTABLE CHEST CLINICAL INFORMATION: Chest pain COMPARISON: 08/05/2016 TECHNIQUE: Portable frontal view of the chest was obtained. FINDINGS: The lungs are well expanded. There is no focal consolidation, edema, or effusion. No pneumothorax. The cardiomediastinal silhouette is within normal limits. No acute osseous abnormality. IMPRESSION: No acute pulmonary findings. EKG 06/26/17 showed sinus rhythm at a rate of 81, no significant change since previous tracing, normal EKG, QT 356, QTc 414. Course Complications: None. Consultations: The patient was seen for admission H&P by Dr. Casillas, who noted: "Assessment: #1 dyspnea at rest: Complete examination, vitals, ECG, chest x-ray unremarkable, symptoms resolved. #2 schizophrenia: Agree with psychiatry plan #3 chronic diarrhea: Continue when necessary Imodium #4 DM: Continue home doses of metformin and glimepiride" Allergies: Coded Allergies: ampicillin (UNKNOWN 06/26/17) Hospital Course/[place] Response: The patient was monitored on the unit for psychosis. He participated in multi- modal treatments on the unit. Medications were not changed, but on discharge, Seroquel is being changed from 100 mg qhs to 100 mg qhs prn insomnia. 1) Please consider addition of a mood stabilizer to address hyper-religiousity. 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 Perhaps antipsychotic should be switched to clozapine on an outpatient basis. Progress note from date of discharge, 07/01/17: Case and treatment plan discussed in team meeting. Staff reports that the patient is denying suicidal ideation. Talked a little about the Devil yesterday. Staff knows him and reports that the patient is at baseline. Patient seen at 10:56 AM with medical student. Patient is juggling his left leg. Reports feeling fine. Has no complaints. Affect is calm and blunted to euthymic. Reports he had no shortness of breath last night or so far this morning. There is no objective evidence of dyspnea. We discussed patient's tardive dyskinesia at the mouth and my recommendation that he follow-up with Koki Soler APRN about this. States he feels energized, pretty good. Mood is good. Rates sad mood 2/10 and anxiety /10. Denies feeling hopeless, helpless, worthless or guilty. Denies active and passive suicidal ideation. Denies homicidal ideation. Reports he has not had any voices so far today. Denies visual hallucinations. Reports some paranoia of "probably people associated with the Devil; don't like what I pray about." Denies magical bridges. Oriented pretty good. Tolerating medications well, without complaint. Feels ready and safe for discharge. IMPRESSION: Condition improved. Okay for discharge today to home with follow-up at [facility]. Discharge HBIPS - Tobacco Use Treatment Offered Post DC Medications Offered: Not Applicable Post DC Tobacco Treatment Plan: Not Applicable - EtOH/Drug Use D/O Treatment Offered Post DC Medications Offered: NA-No EtOH/Drug Use D/O Post DC EtOH/SubAbuse [place] Plan: NA-No EtOH/Drug Use D/O Metabolic Screening - Screen if on a Neuroleptic Medication - Metabolic screening should include: - Blood Pressure, BMI, Glucose or Hgb A1c, & a - Lipid profile from within the past 365 days. Metabolic Screening () Not Applicable, patient not on a neuroleptic. OR () Patient on a neuroleptic(s) . Enter below results for Hemoglobin A1C, and lipid panel if obtained during the last 365 days. BMI: 32.000 Blood Pressure: 142/72 Laboratory Results From [facility] (If applicable): [x] Lab Cholesterol 114 MG/DL 06/26/17 1243 Cholesterol/HDL Ratio 5 % H 06/26/17 1243 HDL Cholesterol 23 mg/dL L 06/26/17 1243 Hemoglobin A1c 7.6 % H 06/26/17 1243 LDL Cholesterol, Calc 49 mg/dL L 06/26/17 1243 Triglycerides 210 mg/dL H 06/26/17 1243 Discharge Instructions General Discharge Information Multiple Neuroleptics: ([x]) Not Applicable SEROQUEL IS NOW PRN. OR Document below three failed attempts at monotherapy, or a plan to taper to monotherapy, or augmentation of Clozapine. () Discharge Diet Diabetic Discharge Activity Normal DC Disposition: Returning to home. Referrals Ordered Referrals Provider Referral 07/02/17 For Groups: [ CARE] [facility] appt. with clinician Laura Mederos 07/02/[address] [place] [address] Provider Referral 07/04/17 For Providers: [Elvia Garcia APRN] For Groups: [[facility]] [facility] appt. with Elvia Garcia APRN 07/04/17 12:30pm [address] [place] [address] [place] [address] Prescriptions Stop taking the following medications: Quetiapine Fumarate (Quetiapine Fumarate) 100 MG TABLET ORAL Every night Risperidone (Risperdal) 4 MG TABLET ORAL TWICE DAILY Risperidone (Risperdal) 2 MG TABLET ORAL Every night Continue taking these medications: Metformin HCl (Metformin HCl ER) 500 MG TAB.ER.24 2 Tablet ORAL TWICE DAILY Comments: Last Taken:07/01/17 Time:1100 Atorvastatin Calcium (Lipitor) 10 MG TABLET 1 Tablet ORAL Every night Comments: Last Taken:06/30/17 Time:1700 Aspirin (Children's Aspirin) 81 MG TAB.CHEW 1 Tablet ORAL Every night Comments: Last Taken:07/01/17 Time:1100 Glimepiride (Glimepiride) 4 MG TABLET 1 Tablet ORAL Q PM Qty = 90 Comments: Last Taken:07/01/17 Time:1100 Start taking the following new medications: Multivitamin (One Daily Multivitamin) 1 EACH TABLET 1 Tablet ORAL DAILY Qty = 14 No Refills Comments: Last Taken:07/01/17 Time:1100 Risperidone (Risperdal) 4 MG TABLET 1 Tablet ORAL DAILY Qty = 14 No Refills Comments: Last Taken:07/01/17 Time:1100 Risperidone (Risperdal) 3 MG TABLET 2 Tablet ORAL AT BEDTIME Qty = 28 No Refills Comments: Last Taken:06/30/17 Time:2100 Quetiapine Fumarate (Seroquel) 100 MG TABLET 1 Tablet ORAL AT BEDTIME as needed for off-label for insomnia Qty = 14 No Refills Comments: Last Taken:06/30/17 Time:2100 Other Inst/Recommendations See Koki Graham APRN about tardive dyskinesia. See PCP about abnl labs. Copies To: Kayla Soler APRN
== END 2017-07-01 12:45 | DRG 885 ==
LOC: ERH 12:34 → CP SOUTH 06-27 11:46 → ERHI 06-27 11:46 → CP SOUTH 06-27 16:13 → ENTRNSPT 06-27 16:15 → CP SOUTH 06-27 16:38 → CMPTRNSPT 06-27 16:50 → ENRESERV 06-27 23:59 → CP SOUTH 06-28 20:45
PROVIDERS: Emergency Medicine
DX: F25.0 Schizoaffective disorder, bipolar type (principal); E11.9 Type 2 diabetes mellitus without complications; F41.9 Anxiety disorder, unspecified; R06.00 Dyspnea, unspecified; G24.01 Drug induced subacute dyskinesia; G47.33 Obstructive sleep apnea (adult) (pediatric); K52.9 Noninfective gastroenteritis and colitis, unspecified; E78.5 Hyperlipidemia, unspecified
CPT/HCPCS: 71045; 80307; 81001; 93005; 93010; G0463; G0480; J3490